=== PATIENT | male | born 1990 | race Caucasian/White ===

== ENCOUNTER 2021-11-06 14:30 | Emergency (ER) | payer OTHER ==
[2021-11-06 15:22] LABS: CREATININE 1.07 mg/dL (0.67-1.17); POTASSIUM 3.8 mmol/L (3.5-5.1)
[2021-11-06 15:38] LABS: BASOPHIL 0.2 % (0-2); EOSINOPHIL 0.8 % (0-5); HCT 51.1 % (42.0-52.0); HGB 16.9 g/dl (13.2-18.0); MCH 28.9 pg (25.0-31.0); MCHC 33.1 g/dL (32.0-36.0); MCV 87.5 fL (78.0-100.0); MONOCYTE 6.9 % (0-12); MPV 10.7 fL (6.0-9.5); NEUTROPHIL 43.6 % (41-80); NRBC 0; PLT 249 K/uL (150-400); RBC 5.84 M/uL (4.70-6.00); RDW 12.5 % (11.5-14.0); WBC 14.5 K/uL (4.0-10.5)
[2021-11-06 15:43] LABS: LYMPHOCYTE 47.4 % (15-48)
[2021-11-06] MEDS ORDERED: LEVETIRACETAM500 MG PO (15:53)
[2021-11-06] MEDS ORDERED: MAGICMW SSW (15:53)
== END 2021-11-06 16:09 | disposition home or self-care (01) ==
LOC: FER 14:30
PROVIDERS: Emergency Medicine
DX: G40.909 Epilepsy, unspecified, not intractable, without status epilepticus (principal); S00.512A Abrasion of oral cavity, initial encounter; X58.XXXA Exposure to other specified factors, initial encounter
CPT/HCPCS: 36415; 80048; 85025; J1953